=== PATIENT | female | born 1965 | race Caucasian/White ===

== ENCOUNTER → 2016-11-03 | Outpatient (CLI) | payer OTHER ==
[~2016-11-03] MED LIST: ALPR.25 PO; ASCO1CHW3 PO; CALTTAB PO; CHEL50TA PO; CYAN25003 SL; ESTR0.07 TD; FISHCAP PO; GLUCTAB6 PO; MIRA33502 PO; OMEP20TA39 PO; SM F10002 PO; TAB-TAB PO
== END ==
LOC: PLAB 09:56
DX: R35.0 Frequency of micturition (principal)
CPT/HCPCS: 87086

== ENCOUNTER → 2017-01-04 | Outpatient (CLI) | payer OTHER ==
[2017-01-04 13:25] LABS: HDL CHOLESTEROL 76.6 MG/DL (40.0-60.0)
== END ==
LOC: PLAB 08:06
PROVIDERS: ATTEND Family Medicine
DX: E78.5 Hyperlipidemia, unspecified (principal)
CPT/HCPCS: 36415; 80061

== ENCOUNTER → 2017-02-15 | Outpatient (CLI) | payer OTHER ==
[2017-02-15 13:21] LABS: MEAN CELL VOLUME 89.8 FL (80.0-100.0); MEAN CORPUSCULAR HEMOGLOBIN 30.5 PG (27.0-34.0); PLATELET COUNT 321 TH/MM3 (150-450); RED CELL DISTRIBUTION WIDTH 13.8 % (11.6-17.2); REVIEW FLAG FINAL; WHITE BLOOD COUNT 5.4 TH/MM3 (4.0-11.0)
[2017-02-15 13:35] LABS: RHEUMATOID FACTOR TRIGGER LESS THAN 10.0 IU/ML (0.0-14.9)
[2017-02-15 13:42] LABS: WESTERGREN SEDIMENTATION RATE 14 mm/hr (0-30)
[2017-02-15 14:05] LABS: ALKALINE PHOSPHATASE 114 U/L (45-117); ALT (GPT) 26 U/L (10-53); ANION GAP 8 MEQ/L (5-15); AST (GOT) 14 U/L (15-37); BICARBONATE 28.2 MEQ/L (21.0-32.0); BLOOD UREA NITROGEN 12 MG/DL (7-18); CHLORIDE 103 MEQ/L (98-107); FREE T4 0.96 NG/DL (0.76-1.46); GLOMERULAR FILTRATION RATE 81 ML/MIN (>89); SODIUM (NA) 139 MEQ/L (136-145); TOTAL BILIRUBIN ADULT 0.4 MG/DL (0.2-1.0)
[2017-02-15 14:07] LABS: CREATINE KINASE 78 U/L (26-192)
[2017-02-18 07:53] LABS: THROMBIN TIME FOR LA ND sec (13-19)
== END ==
LOC: PLAB 08:15
PROVIDERS: ATTEND Family Medicine
DX: M25.50 Pain in unspecified joint (principal); R53.83 Other fatigue; E55.9 Vitamin D deficiency, unspecified; M60.9 Myositis, unspecified
CPT/HCPCS: 80053; 82306; 82550; 82607; 84439; 84443; 85027; 85613; 85652; 85730; 86038; 86140; 86200; 86430

== ENCOUNTER → 2017-04-22 | Outpatient (CLI) | payer OTHER | LOC: PLAB 10:09 | PROVIDERS: ATTEND Family Medicine | DX: E78.5 Hyperlipidemia, unspecified (principal) | CPT/HCPCS: 80061 ==

== ENCOUNTER → 2017-04-26 | Outpatient (CLI) | payer OTHER ==
[2017-04-28 13:22] LABS: ESTRADIOL 22 pg/mL (()); ESTRIOL <0.07 ng/mL (<0.08)
[2017-04-29 19:52] LABS: PROGESTERONE 0.4 ng/mL (())
== END ==
LOC: PLAB 09:08
DX: N95.8 Other specified menopausal and perimenopausal disorders (principal); Z79.890 Hormone replacement therapy
CPT/HCPCS: 82670; 82677; 84144; 84403

== ENCOUNTER → 2017-05-30 | Outpatient (CLI) | payer OTHER ==
[2017-05-30 09:43] LABS: HEMATOCRIT 38.6 % (35.0-46.0); MEAN CELL VOLUME 91.3 FL (80.0-100.0); MEAN CORPUSCULAR HEMOGLOBIN 30.4 PG (27.0-34.0); MEAN CORPUSCULAR HGB CONC 33.3 % (32.0-36.0); PLATELET COUNT 304 TH/MM3 (150-450); RED BLOOD COUNT 4.23 MIL/MM3 (4.00-5.30); RED CELL DISTRIBUTION WIDTH 14.7 % (11.6-17.2); REVIEW FLAG FINAL; WHITE BLOOD COUNT 5.3 TH/MM3 (4.0-11.0)
[2017-05-30 09:51] LABS: BLOOD, URINE NEG (NEG); GLUCOSE,URINE NEG (NEG); KETONE, URINE NEG (NEG); NITRITE,URINE NEG (NEG); SQUAMOUS EPITHELIAL CELL URINE 4 /hpf (0-5); URINE COLOR LIGHT-YELLOW (YELLW/STRAW)
[2017-05-30 10:09] LABS: ALT (GPT) 24 U/L (10-53); ANION GAP 7 MEQ/L (5-15); AST (GOT) 17 U/L (15-37); BICARBONATE 27.7 MEQ/L (21.0-32.0); BLOOD UREA NITROGEN 7 MG/DL (7-18); CHLORIDE 104 MEQ/L (98-107); GLOMERULAR FILTRATION RATE 88 ML/MIN (>89); GLUCOSE,FASTING 94 MG/DL (74-99); POTASSIUM 3.6 MEQ/L (3.5-5.1); SODIUM (NA) 139 MEQ/L (136-145)
[2017-05-30 10:34] LABS: ALKALINE PHOSPHATASE 127 U/L (45-117); FREE T4 0.98 NG/DL (0.76-1.46); HDL CHOLESTEROL 57.7 MG/DL (40.0-60.0); LDL CHOLESTEROL 108 MG/DL (0-99); TOTAL BILIRUBIN ADULT 0.4 MG/DL (0.2-1.0)
== END ==
LOC: PLAB 08:22
PROVIDERS: ATTEND Family Medicine
DX: R53.83 Other fatigue (principal); E78.5 Hyperlipidemia, unspecified
CPT/HCPCS: 80053; 80061; 81001; 82533; 82607; 84439; 84443; 85027

== ENCOUNTER → 2017-07-19 | Outpatient (CLI) | payer OTHER ==
[2017-07-19 07:19] LABS: HEMATOCRIT 36.3 % (35.0-46.0); MEAN CELL VOLUME 91.3 FL (80.0-100.0); MEAN CORPUSCULAR HEMOGLOBIN 31.4 PG (27.0-34.0); MEAN CORPUSCULAR HGB CONC 34.4 % (32.0-36.0); PLATELET COUNT 318 TH/MM3 (150-450); RED BLOOD COUNT 3.98 MIL/MM3 (4.00-5.30); RED CELL DISTRIBUTION WIDTH 14.5 % (11.6-17.2); REVIEW FLAG FINAL; WHITE BLOOD COUNT 5.4 TH/MM3 (4.0-11.0)
[2017-07-19 07:49] LABS: ALT (GPT) 24 U/L (10-53); ANION GAP 5 MEQ/L (5-15); AST (GOT) 13 U/L (15-37); BICARBONATE 26.9 MEQ/L (21.0-32.0); BLOOD UREA NITROGEN 10 MG/DL (7-18); CHLORIDE 106 MEQ/L (98-107); GLOMERULAR FILTRATION RATE 85 ML/MIN (>89); GLUCOSE,FASTING 92 MG/DL (74-99); POTASSIUM 3.9 MEQ/L (3.5-5.1); RHEUMATOID FACTOR TRIGGER LESS THAN 10.0 IU/ML (0.0-14.9); SODIUM (NA) 138 MEQ/L (136-145)
[2017-07-19 07:50] LABS: BACTERIA, URINE RARE /hpf; BLOOD, URINE NEG (NEG); GLUCOSE,URINE NEG (NEG); KETONE, URINE NEG (NEG); NITRITE,URINE NEG (NEG); SQUAMOUS EPITHELIAL CELL URINE 2 /hpf (0-5); URINE COLOR YELLOW (YELLW/STRAW)
[2017-07-19 08:00] LABS: CORTISOL 20.9 MCG/DL
[2017-07-19 08:14] LABS: ALKALINE PHOSPHATASE 108 U/L (45-117); FREE T4 1.09 NG/DL (0.76-1.46); HDL CHOLESTEROL 61.1 MG/DL (40.0-60.0); LDL CHOLESTEROL 105 MG/DL (0-99); TOTAL BILIRUBIN ADULT 0.5 MG/DL (0.2-1.0)
[2017-07-19 08:21] LABS: CREATINE KINASE 59 U/L (26-192)
[2017-07-21 23:53] LABS: THROMBIN TIME FOR LA ND sec (13-19)
== END ==
LOC: CLAB 06:45
PROVIDERS: ATTEND Family Medicine
DX: E78.5 Hyperlipidemia, unspecified (principal); R53.83 Other fatigue; E55.9 Vitamin D deficiency, unspecified; M25.50 Pain in unspecified joint; M60.9 Myositis, unspecified
CPT/HCPCS: 36415; 80053; 80061; 81001; 82306; 82533; 82550; 82607; 84439; 84443; 85027; 85598; 85613; 85730; 86038; 86140; 86200; 86430

== ENCOUNTER → 2017-08-24 | Outpatient (CLI) | payer OTHER ==
[2017-08-24 14:10] LABS: THYROXINE (T4) 9.3 MCG/DL (4.8-13.9)
[2017-08-24 14:36] LABS: FREE T3 2.77 PG/ML (2.18-3.98)
== END ==
LOC: PLAB 09:51
PROVIDERS: ATTEND Family Medicine
DX: R79.89 Other specified abnormal findings of blood chemistry (principal); R53.83 Other fatigue
CPT/HCPCS: 82607; 84436; 84443; 84481

== ENCOUNTER → 2017-09-20 | Outpatient (CLI) | payer OTHER ==
[2017-09-20 10:53] LABS: FREE T4 1.02 NG/DL (0.76-1.46)
[2017-09-24 03:50] LABS: THYROGLOB ABS LESS THAN 1 IU/mL (< OR = 1)
[2017-09-24 13:52] LABS: THYROGLOBULN 6.5 ng/mL (2.8-40.9)
== END ==
LOC: PLAB 08:33
PROVIDERS: ATTEND Family Medicine
DX: R79.89 Other specified abnormal findings of blood chemistry (principal)
CPT/HCPCS: 36415; 84432; 84439; 84443; 86376; 86800

== ENCOUNTER → 2017-11-07 | Outpatient (CLI) | payer OTHER ==
[2017-11-07 11:45] LABS: ALBUMIN 3.9 GM/DL (3.4-5.0); AST (GOT) 15 U/L (15-37); BICARBONATE 28.2 MEQ/L (21.0-32.0); BLOOD UREA NITROGEN 9 MG/DL (7-18); CALCIUM 9.3 MG/DL (8.5-10.1); CHLORIDE 102 MEQ/L (98-107); CREATININE 0.75 MG/DL (0.50-1.00); GLOMERULAR FILTRATION RATE 81 ML/MIN (>89); GLUCOSE,FASTING 100 MG/DL (74-99); SODIUM (NA) 136 MEQ/L (136-145)
[2017-11-07 11:46] LABS: CHOLESTEROL 227 MG/DL (120-200); TRIGLYCERIDES 91 MG/DL (42-150)
[2017-11-07 11:50] LABS: ALKALINE PHOSPHATASE 114 U/L (45-117); ALT (GPT) 23 U/L (10-53); CHOLESTEROL/ HDL RATIO 3.22 RATIO; HDL CHOLESTEROL 70.4 MG/DL (40.0-60.0); LDL CHOLESTEROL 138 MG/DL (0-99); TOTAL BILIRUBIN ADULT 0.3 MG/DL (0.2-1.0); TOTAL PROTEIN 7.4 GM/DL (6.4-8.2)
== END ==
LOC: PLAB 08:49
PROVIDERS: ATTEND Family Medicine
DX: E78.5 Hyperlipidemia, unspecified (principal)
CPT/HCPCS: 36415; 80053; 80061

== ENCOUNTER → 2017-11-24 | Outpatient (CLI) | payer OTHER | LOC: PLAB 10:08 | PROVIDERS: ATTEND Family Medicine | DX: R53.83 Other fatigue (principal) | CPT/HCPCS: 36415; 82607 ==

== ENCOUNTER 2017-12-29 10:11 | Observation (INO) | payer OTHER ==
[2017-12-29] VITALS (9 sets, daily range): BP systolic 134–193; BP diastolic 79–102; PULSE 58–85; RESP 18–20; TEMP 96.6–97.8; O2SAT 97–100
[~2017-12-29] VITALS: Ht 160 cm; Wt 80.9 kg
[2017-12-29] MEDS ORDERED: SODIUM CHLORIDE 0.9% FLUSH 10 ML FLUSH IVF PRN (10:30)
[2017-12-29] MEDS ORDERED: ASPIRIN 325 MG TAB PO ONE (10:30)
[2017-12-29] MEDS ORDERED: RANI150T PO (10:34)
[2017-12-29] MEDS ORDERED: ASPI81CH6 CHEW (10:34)
[2017-12-29 10:47] LABS: AUTOMATED NEUTROPHIL # 2.5 TH/MM3 (1.8-7.7); BASOPHIL % 0.6 % (0.0-2.0); EOSINOPHIL # 0.1 TH/MM3 (0-0.4); EOSINOPHIL % 1.6 % (0.0-4.0); HEMATOCRIT 35.8 % (35.0-46.0); HEMOGLOBIN 12.1 GM/DL (11.6-15.3); LYMPH % 30.5 % (9.0-44.0); LYMPHOCYTE # 1.4 TH/MM3 (1.0-4.8); MEAN CELL VOLUME 91.4 FL (80.0-100.0); MEAN PLATELET VOLUME 7.2 FL (7.0-11.0); MONO % 10.7 % (0.0-8.0); MONOCYTE # 0.5 TH/MM3 (0-0.9); NEUT % 56.6 % (16.0-70.0); PLATELET COUNT 323 TH/MM3 (150-450); RED BLOOD COUNT 3.92 MIL/MM3 (4.00-5.30); RED CELL DISTRIBUTION WIDTH 13.6 % (11.6-17.2); WHITE BLOOD COUNT 4.5 TH/MM3 (4.0-11.0)
--- NOTE | 2017-12-29 10:47 | PD ---
HPI Chief Complaint: Chest Pain Time Seen by Provider: 10:17 Travel History International Travel<30 days: No Contact w/Intl Traveler<30days: No Traveled to known affect area: No History of Present Illness HPI This is a 52-year-old female who presents with multiple complaints. She states that over the last 3 weeks, she has had intermittent episodes of chest pain. It is sharp at times. It has now progressed to be occurring more frequently. It is achy now and radiates to the left arm. No associated diaphoresis or shortness of breath. She also notes that about 2 weeks ago, she had the left side of her forehead on her car door. No fall or loss of consciousness. She had a small skin wound which has healed normally. She states that she continues to have intermittent left-sided headaches. At times, she feels like her left eye or cheek is twitching. No generalized seizure activity. No focal weakness, numbness, tingling. No change in vision. No neck pain or stiffness. Symptoms are mild in severity. Onset gradual. Patient has not had any aspirin today. Patient states that she has had some cramping in both legs. She recently traveled to [place]. PFSH Past Medical History Hx Anticoagulant Therapy: Yes (asa 81) Blood Disorders: No Anxiety: Yes Cancer: Yes (CERVICAL CANCER) Cardiovascular Problems: No Chemotherapy: No Diabetes: No Diminished Hearing: No Endocrine: No Gastrointestinal Disorders: Yes (STONE IN GALLBLLADDER, GERD, gastritis) Glaucoma: No Genitourinary: No Hepatitis: No Hiatal Hernia: No Hypertension: No Immune Disorder: No Musculoskeletal: No Neurologic: No Psychiatric: Yes (DEPRESSION/ANXIETY) Reproductive: No Respiratory: No Immunizations Current: No Radiation Therapy: No Thyroid Disease: No Triglycerides - High: Yes Influenza Vaccination: Yes ?: Not Menopausal: Yes : 1 Para: 1 Tubal Ligation: Yes Past Surgical History Abdominal Surgery: No Body Medical Devices: dental implants Cardiac Surgery: No Ear Surgery: No Endocrine Surgery: No Eye Surgery: No Genitourinary Surgery: No Gynecologic Surgery: Yes (C SECTION, CERVIX REMOVED, PARTIAL HYSTERECTOMY, OOPHERECTOMY BRENDA) Hysterectomy: Yes Oral Surgery: No Pacemaker: No Thoracic Surgery: No Other Surgery: Yes (PLASTIC SURGERY INCLUDING LIPOSUCTION ON 09/22/11) Social History Alcohol Use: Yes (SOCIAL) Tobacco Use: No Substance Use: No Allergies-Medications (Allergen,Severity, Reaction): Coded Allergies: amoxicillin (Unverified Allergy, Severe, Nausea/Vomiting, 12/29/17) clavulanic acid (Unverified Allergy, Severe, Nausea/Vomiting, 12/29/17) crayfish (Unverified Allergy, Severe, THROAT CLOSES, SOB, 12/29/17) prednisone (Unverified Allergy, Severe, Tachycardia, 12/29/17) ketorolac (Unverified Adverse Reaction, Severe, Nausea/Vomiting, 12/29/17) Reported Meds & Prescriptions Reported Meds & Active Scripts Active Reported Ranitidine (Ranitidine HCl) 150 Mg Tab 150 Mg PO DAILY Aspirin Low Dose (Aspirin) 81 Mg Chew 81 Mg CHEW HS Review of Systems Except as stated in HPI: all other systems reviewed are Neg Physical Exam Narrative GENERAL: Alert, well nourished, well appearing patient resting on the bed in no acute distress. Vital Signs reviewed SKIN: Focused skin assessment warm/dry. HEAD: Atraumatic. Normocephalic. EYES: Pupils equal and round. No scleral icterus. No injection or drainage. ENT: No nasal bleeding or discharge. Mucous membranes pink and moist. NECK: Trachea midline. No JVD. Spontaneous, painless full range of motion with no meningismus CARDIOVASCULAR: Regular rate and rhythm. No murmur appreciated. Extremities warm and well perfused with bounding peripheral pulses RESPIRATORY: No accessory muscle use. Clear to auscultation. Breath sounds equal bilaterally. Breathing easily and speaking in full sentences GASTROINTESTINAL: Abdomen soft, non-tender, nondistended. Normal bowel sounds. No rigid, rebound, guarding MUSCULOSKELETAL: No obvious deformities. No clubbing. No cyanosis. No edema. Compartments are soft. No palpable calf cords. Negative Homans sign bilaterally. Legs are warm and well perfused with bounding symmetric DP pulses NEUROLOGICAL: Awake and alert. No obvious cranial nerve deficits. Motor grossly within normal limits. Normal speech. Sensation intact. Normal gait PSYCHIATRIC: Appropriate mood and affect; insight and judgment normal. Data Data Last Documented VS Vital Signs Date Time Temp Pulse Resp B/P (MAP) Pulse Ox O2 Delivery O2 Flow Rate FiO2 12/29/17 12:14 76 18 137/84 (101) 98 Room Air 12/29/17 10:26 97.8 Orders Orders Electrocardiogram (12/29/17 10:25) Ckmb (Isoenzyme) Profile (12/29/17 10:25) Complete Blood Count With Diff (12/29/17 10:25) Comprehensive Metabolic Panel (12/29/17 10:25) Magnesium (Mg) (12/29/17 10:25) Prothrombin Time / Inr (Pt) (12/29/17 10:25) Act Partial Throm Time (Ptt) (12/29/17 10:25) Troponin I (12/29/17 10:25) Ecg Monitoring (12/29/17 10:25) Bilateral Bp Monitoring (12/29/17 10:25) Iv Access Insert/Monitor (12/29/17 10:25) Oximetry (12/29/17 10:25) Aspirin (Aspirin) (12/29/17 10:30) Sodium Chloride 0.9% Flush (Ns Flush) (12/29/17 10:30) Chest, Pa & Lat (12/29/17 10:25) Ct Brain W/O Iv Contrast(Rout) (12/29/17 10:25) Us Leg Venous Doppler Bilat (12/29/17 10:26) Nitroglycerin Sl (Nitrostat Sl) (12/29/17 12:15) Admit Order (Ed Use Only) (12/29/17 12:32) Labs Laboratory Tests Test 12/29/17 10:41 White Blood Count 4.5 TH/MM3 Red Blood Count 3.92 MIL/MM3 Hemoglobin 12.1 GM/DL Hematocrit 35.8 % Mean Corpuscular Volume 91.4 FL Mean Corpuscular Hemoglobin 31.0 PG Mean Corpuscular Hemoglobin Concent 34.0 % Red Cell Distribution Width 13.6 % Platelet Count 323 TH/MM3 Mean Platelet Volume 7.2 FL Neutrophils (%) (Auto) 56.6 % Lymphocytes (%) (Auto) 30.5 % Monocytes (%) (Auto) 10.7 % Eosinophils (%) (Auto) 1.6 % Basophils (%) (Auto) 0.6 % Neutrophils # (Auto) 2.5 TH/MM3 Lymphocytes # (Auto) 1.4 TH/MM3 Monocytes # (Auto) 0.5 TH/MM3 Eosinophils # (Auto) 0.1 TH/MM3 Basophils # (Auto) 0.0 TH/MM3 CBC Comment DIFF FINAL Differential Comment Prothrombin Time 9.2 SEC Prothromb Time International Ratio 0.9 RATIO Activated Partial Thromboplast Time 27.8 SEC Blood Urea Nitrogen 7 MG/DL Creatinine 0.67 MG/DL Random Glucose 102 MG/DL Total Protein 7.3 GM/DL Albumin 3.6 GM/DL Calcium Level 8.7 MG/DL Magnesium Level 2.2 MG/DL Alkaline Phosphatase 112 U/L Aspartate Amino Transf (AST/SGOT) 16 U/L Alanine Aminotransferase (ALT/SGPT) 23 U/L Total Bilirubin 0.4 MG/DL Sodium Level 139 MEQ/L Potassium Level 3.9 MEQ/L Chloride Level 105 MEQ/L Carbon Dioxide Level 27.6 MEQ/L Anion Gap 6 MEQ/L Estimat Glomerular Filtration Rate 92 ML/MIN Total Creatine Kinase 57 U/L Troponin I LESS THAN 0.02 NG/ML MDM Medical Decision Making Medical Screen Exam Complete: Yes Emergency Medical Condition: Yes Medical Record Reviewed: Yes Interpretation(s) EKG shows sinus rhythm with a rate of 68. No acute ST elevation Laboratory Tests Test 12/29/17 10:41 White Blood Count 4.5 TH/MM3 Red Blood Count 3.92 MIL/MM3 Hemoglobin 12.1 GM/DL Hematocrit 35.8 % Mean Corpuscular Volume 91.4 FL Mean Corpuscular Hemoglobin 31.0 PG Mean Corpuscular Hemoglobin Concent 34.0 % Red Cell Distribution Width 13.6 % Platelet Count 323 TH/MM3 Mean Platelet Volume 7.2 FL Neutrophils (%) (Auto) 56.6 % Lymphocytes (%) (Auto) 30.5 % Monocytes (%) (Auto) 10.7 % Eosinophils (%) (Auto) 1.6 % Basophils (%) (Auto) 0.6 % Neutrophils # (Auto) 2.5 TH/MM3 Lymphocytes # (Auto) 1.4 TH/MM3 Monocytes # (Auto) 0.5 TH/MM3 Eosinophils # (Auto) 0.1 TH/MM3 Basophils # (Auto) 0.0 TH/MM3 CBC Comment DIFF FINAL Differential Comment Prothrombin Time 9.2 SEC Prothromb Time International Ratio 0.9 RATIO Activated Partial Thromboplast Time 27.8 SEC Blood Urea Nitrogen 7 MG/DL Creatinine 0.67 MG/DL Random Glucose 102 MG/DL Total Protein 7.3 GM/DL Albumin 3.6 GM/DL Calcium Level 8.7 MG/DL Magnesium Level 2.2 MG/DL Alkaline Phosphatase 112 U/L Aspartate Amino Transf (AST/SGOT) 16 U/L Alanine Aminotransferase (ALT/SGPT) 23 U/L Total Bilirubin 0.4 MG/DL Sodium Level 139 MEQ/L Potassium Level 3.9 MEQ/L Chloride Level 105 MEQ/L Carbon Dioxide Level 27.6 MEQ/L Anion Gap 6 MEQ/L Estimat Glomerular Filtration Rate 92 ML/MIN Total Creatine Kinase 57 U/L Troponin I LESS THAN 0.02 NG/ML Last 24 hours Impressions Lower Extremity Ultrasound 12/29/17 1026 Signed Impressions: Service Date/Time: December 10:55 - CONCLUSION: Normal examination. Abner Calvillo MD Head CT 12/29/17 1025 Signed Impressions: Service Date/Time: December 11:19 - CONCLUSION: No acute intracranial disease. Dung Cardona MD Chest X-Ray 12/29/17 1025 Signed Impressions: Service Date/Time: December 10:40 - CONCLUSION: Normal examination. Cholecystectomy clips Kirt Winston MD Differential Diagnosis Unstable angina, atypical angina, musculoskeletal pain, anxiety, DVT, closed head injury, concussion, subdural hematoma Narrative Course The patient was placed on the metal reed tuner. IV access was established. Labs , imaging were performed. Patient was given aspirin and a dose of nitroglycerin with resolution of her chest pain. She has no focal neurological deficits in the emergency department. I am concerned regarding her left-sided chest pain that radiates to the left arm. She has not had a stress test in 3-5 years. I reviewed the results of the workup with her. Plan for admission for further evaluation and care of acute chest pain. Physician Communication Physician Communication 12:30 PM: Spoke with the admitting hospitalist Diagnosis Primary Impression: Acute chest pain Mayi Issa MD Dec 29, 2017 10:47
[2017-12-29 10:54] LABS: CHLORIDE 105 MEQ/L (98-107); SODIUM (NA) 139 MEQ/L (136-145)
[2017-12-29 10:57] LABS: CALCIUM 8.7 MG/DL (8.5-10.1)
[2017-12-29 10:58] LABS: ALBUMIN 3.6 GM/DL (3.4-5.0); BICARBONATE 27.6 MEQ/L (21.0-32.0); BLOOD UREA NITROGEN 7 MG/DL (7-18); GLUCOSE,RANDOM 102 MG/DL (74-106); MAGNESIUM 2.2 MG/DL (1.5-2.5)
--- NOTE | 2017-12-29 10:58 | RADRPT ---
EXAM DATE/TIME: 12/29/2017 10:40 [facility] COMPARISON: No previous studies available for comparison. INDICATIONS : Chest pain radiating to left arm. MEDICAL HISTORY : Gastroesophageal reflux disease. Gall stones. Gastritis. Cervical CA. SURGICAL HISTORY : Cholecystectomy. section. Hysterectomy. OOphorectomy. Tubal ligation. ENCOUNTER: Initial ACUITY: 1 day PAIN SCORE: 5/10 LOCATION: chest FINDINGS: PA and lateral views of the chest demonstrate the lungs to be symmetrically aerated without evidence of mass, infiltrate or effusion. The cardiomediastinal contours are unremarkable. Osseous structure s are intact. CONCLUSION: Normal examination. Cholecystectomy clips Kirt Winstno MD on December 29, 2017 at 10:56 Board Certified Radiologist. This report was verified electronically.
[2017-12-29 11:01] LABS: ALT (GPT) 23 U/L (10-53); AST (GOT) 16 U/L (15-37); CREATININE 0.67 MG/DL (0.50-1.00); GLOMERULAR FILTRATION RATE 92 ML/MIN (>89)
[2017-12-29 11:03] LABS: TOTAL BILIRUBIN ADULT 0.4 MG/DL (0.2-1.0); TOTAL PROTEIN 7.3 GM/DL (6.4-8.2)
[2017-12-29 11:04] LABS: ALKALINE PHOSPHATASE 112 U/L (45-117)
[2017-12-29 11:06] LABS: TROPONIN I LESS THAN 0.02 NG/ML (0.02-0.05)
--- NOTE | 2017-12-29 11:26 | RADRPT ---
EXAM DATE/TIME: 12/29/2017 10:55 [facility] COMPARISON: No previous studies available for comparison. INDICATIONS : Bilateral leg pain. MEDICAL HISTORY : Gastroesophageal reflux disease. Cervical cancer. Gastritis. Hyperlipidemia. SURGICAL HISTORY : Cholecystectomy. section. Tubal ligation.Hysterectomy. ENCOUNTER: Initial ACUITY: 1 day PAIN SCORE: 3/10 LOCATION: Bilateral legs. TECHNIQUE: Venous ultrasound of the left and right leg was performed from the inguinal ligament to the proximal calf. Real-time, color Doppler and spectral tracing, compression and augmentation techniques were us ed. FINDINGS: RIGHT LEG: There is normal compressibility of the deep venous system from the inguinal region to the proximal ca lf. No echogenic clot is seen in the lumen of the common femoral, femoral, popliteal, and posterior tibial veins. There is a normal response of the venous system to proximal and distal augmentation an d respiration. LEFT LEG: There is normal compressibility of the deep venous system from the inguinal region to the proximal ca lf. No echogenic clot is seen in the lumen of the common femoral, femoral, popliteal, and posterior tibial veins. There is a normal response of the venous system to proximal and distal augmentation an d respiration. CONCLUSION: Normal examination. Abner Calvillo MD on December 29, 2017 at 11:24 Board Certified Radiologist. This report was verified electronically.
[2017-12-29 11:27] LABS: INTERNATIONAL NORMALIZED RATIO 0.9 RATIO; PROTHROMBIN TIME - PATIENT 9.2 SEC (9.8-11.6)
--- NOTE | 2017-12-29 11:28 | RADRPT ---
EXAM DATE/TIME: 12/29/2017 11:19 [facility] COMPARISON: No previous studies available for comparison. INDICATIONS : Trauma. Hit left forehead 2 weeks ago. RADIATION DOSE: 63.87 CTDIvol (mGy) MEDICAL HISTORY : Gastroesophageal reflux disease. Cervical cancer. SURGICAL HISTORY : Cholecystectomy. Tubal ligation.Hysterectomy. ENCOUNTER: Initial ACUITY: 2 weeks PAIN SCALE: 2/10 LOCATION: Left frontal TECHNIQUE: Multiple contiguous axial images were obtained of the head. Using automated exposure control and adj ustment of the mA and/or kV according to patient size, radiation dose was kept as low as reasonably a chievable to obtain optimal diagnostic quality images. DICOM format image data is available electro nically for review and comparison. FINDINGS: CEREBRUM: The ventricles are normal for age. No evidence of midline shift, mass lesion, hemorrhage or acute in farction. No extra-axial fluid collections are seen. POSTERIOR FOSSA: The cerebellum and brainstem are intact. The 4th ventricle is midline. The cerebellopontine angle i s unremarkable. EXTRACRANIAL: The visualized portion of the orbits is intact. SKULL: The calvaria is intact. No evidence of skull fracture. CONCLUSION: No acute intracranial disease. Dung Cardona MD on December 29, 2017 at 11:26 Board Certified Radiologist. This report was verified electronically.
[2017-12-29] MEDS ORDERED: NITROGLYCERIN 0.4 MG SL 25 TABS/BTL SL ONE (12:15)
[2017-12-29] MEDS ORDERED: SODIUM CHLORIDE 0.9% FLUSH 10 ML FLUSH IV FLUSH PRN (14:15)
[2017-12-29] MEDS ORDERED: TEMAZEPAM 15 MG CAP PO PRN (15:00)
[2017-12-29] MEDS ORDERED: ACETAMINOPHEN 500 MG CPLT PO PRN (15:00)
[2017-12-29] MEDS ORDERED: ACETAMINOPHEN/HYDROcodone 325 MG/7.5 MG TAB PO PRN (15:00)
[2017-12-29] MEDS ORDERED: MORPHINE SULFATE 4 MG/ML INJ IV PUSH PRN (15:00)
[2017-12-29] MEDS ORDERED: NITROGLYCERIN 0.4 MG SL 25 TABS/BTL SL PRN (15:00)
[2017-12-29] MEDS ORDERED: ONDANSETRON HCL 4 MG/2 ML VIAL IV PUSH PRN (15:00)
--- NOTE | 2017-12-29 15:14 | HHI.HP ---
HPI Service [facility] Primary Care Physician Abdi Wheat DO Admission Diagnosis Acute Chest Pain Diagnoses: (1) Chest pain Chief Complaint: Chest pain Travel History International Travel<30 Days: No Contact w/Intl Traveler <30 Da: No Traveled to Known Affected Are: No History of Present Illness There is a 52-year-old female with known history of hypertension, hyperlipidemia, cervical cancer who presented to the hospital because of chest discomfort. Patient states that she has been experiencing intermittent chest pain for over 3 weeks. She states that it is described as a heaviness in her chest that radiates to her left arm with associated nausea, lightheadedness. Denied any vomiting, diaphoresis, shortness of breath. She indicates that a 6/ 10 on a pain scale and was happening approximately daily that lasted for a few minutes at a time. However she has been under a lot more stress recently and today she was experiencing it like every 30 minutes resolved in a few minutes and described his same pain that she has been experiencing for the last 3 weeks. Patient came to emergency department for evaluation. Patient was found to have accelerated hypertension at that time. Her blood pressure controlled her pain did improve. He has recommended by the ER physician that the patient be observed for the chest pain center. Review of Systems Constitutional: COMPLAINS OF: Dizziness Cardiovascular: COMPLAINS OF: Chest pain Gastrointestinal: COMPLAINS OF: Nausea Except as stated in HPI: all other systems reviewed are Neg Past Family Social History Past Medical History Hypertension Hyperlipidemia History of cervical cancer Past Surgical History Hysterectomy Cholecystectomy Reported Medications Reported Meds & Active Scripts Active Reported Ranitidine (Ranitidine HCl) 150 Mg Tab 150 Mg PO DAILY Aspirin Low Dose (Aspirin) 81 Mg Chew 81 Mg CHEW HS Allergies: Coded Allergies: amoxicillin (Unverified Allergy, Severe, Nausea/Vomiting, 12/29/17) clavulanic acid (Unverified Allergy, Severe, Nausea/Vomiting, 12/29/17) crayfish (Unverified Allergy, Severe, THROAT CLOSES, SOB, 12/29/17) prednisone (Unverified Allergy, Severe, Tachycardia, 12/29/17) ketorolac (Unverified Adverse Reaction, Severe, Nausea/Vomiting, 12/29/17) Family History Reviewed and significant for father with high blood pressure and myocardial infarction. Mother with hypertension and cerebral hemorrhage Social History Patient quit smoking 20 years ago, prior to that she smoked 1 pack of cigarettes a day since she was 15 years old. She does drink alcohol 2 times weekly. Denies any illicit drug Physical Exam Vital Signs Vital Signs Date Time Temp Pulse Resp B/P (MAP) Pulse Ox O2 Delivery O2 Flow Rate FiO2 12/29/17 13:00 12/29/17 12:14 76 18 137/84 (101) 98 Room Air 12/29/17 12:09 75 18 139/83 (101) 98 Room Air 12/29/17 12:00 97.3 58 18 138/79 (98) 97 12/29/17 10:48 74 18 146/87 (106) 98 Room Air 12/29/17 10:29 85 12/29/17 10:26 97.8 85 18 193/102 (132) 100 Physical Exam GENERAL: Well-developed, well-nourished, in no acute distress. alert and orientated HEENT: Head is normocephalic without any lesions or masses noted. Facial features are symmetric. Eyes: Pupils equal round reactive to light. Extraocular muscles are intact. Conjunctivae were clear. Oropharyngeal: Pharynx without any erythema edema. Tongue is midline without deviation. Buccal mucosa is moist without any masses or lesions NECK: Supple without any masses. Trachea midline no deviation. No JVD, no bruits are appreciated CARDIAC: Regular rhythm, regular rate. S1/S2 are heard. No murmurs gallops or rubs. LUNGS: Clear to auscultation bilaterally. No wheeze, rhonchi or rales. No use of accessory muscles on inspiration or expiration. ABDOMEN: Soft, nontender. Nondistended. Bowel sounds heard in all 4 quadrants. No organomegaly or masses. Negative rebound, negative guarding EXTREMITIES: No edema, pulses are equal bilaterally. No cyanosis or clubbing NEUROLOGY: Mood and affect appear appropriate. Cranial nerves II through XII grossly intact. Muscle strength 5/5 in upper and lower extremities bilaterally. Deep tendon reflexes are 2+ in upper and lower extremities bilaterally. Laboratory Laboratory Tests Test 12/29/17 10:41 White Blood Count 4.5 Red Blood Count 3.92 Hemoglobin 12.1 Hematocrit 35.8 Mean Corpuscular Volume 91.4 Mean Corpuscular Hemoglobin 31.0 Mean Corpuscular Hemoglobin Concent 34.0 Red Cell Distribution Width 13.6 Platelet Count 323 Mean Platelet Volume 7.2 Neutrophils (%) (Auto) 56.6 Lymphocytes (%) (Auto) 30.5 Monocytes (%) (Auto) 10.7 Eosinophils (%) (Auto) 1.6 Basophils (%) (Auto) 0.6 Neutrophils # (Auto) 2.5 Lymphocytes # (Auto) 1.4 Monocytes # (Auto) 0.5 Eosinophils # (Auto) 0.1 Basophils # (Auto) 0.0 CBC Comment DIFF FINAL Differential Comment Prothrombin Time 9.2 Prothromb Time International Ratio 0.9 Activated Partial Thromboplast Time 27.8 Blood Urea Nitrogen 7 Creatinine 0.67 Random Glucose 102 Total Protein 7.3 Albumin 3.6 Calcium Level 8.7 Magnesium Level 2.2 Alkaline Phosphatase 112 Aspartate Amino Transf (AST/SGOT) 16 Alanine Aminotransferase (ALT/SGPT) 23 Total Bilirubin 0.4 Sodium Level 139 Potassium Level 3.9 Chloride Level 105 Carbon Dioxide Level 27.6 Anion Gap 6 Estimat Glomerular Filtration Rate 92 Total Creatine Kinase 57 Troponin I LESS THAN 0.02 Result Diagram: 12/29/17 1041 12/29/17 1041 Imaging Last Impressions Lower Extremity Ultrasound 12/29/17 1026 Signed Impressions: Service Date/Time: December 10:55 - CONCLUSION: Normal examination. Abner Calvillo MD Head CT 12/29/17 1025 Signed Impressions: Service Date/Time: December 11:19 - CONCLUSION: No acute intracranial disease. Dung Cardona MD Chest X-Ray 12/29/17 1025 Signed Impressions: Service Date/Time: December 10:40 - CONCLUSION: Normal examination. Cholecystectomy clips MD Danita Cobos VTE Risk Assessment Danita VTE Risk Assessment: No/Low Risk (score <= 1) Caprini Risk Assessment Model Point Value = 1 Point Value = 2 Point Value = 3 Point Value = 5 Age 41-60 Minor surgery BMI > 25 kg/m2 Swollen legs Varicose veins or History of unexplained or recurrent spontaneous Oral contraceptives or hormone replacement Sepsis (< 1 month) Serious lung disease, including pneumonia (< 1 month) Abnormal pulmonary function Acute myocardial infarction Congestive heart failure (< 1 month) History of inflammatory bowel disease Medical patient at bed rest Age 61-74 Arthroscopic surgery Major open surgery (> 45 min) Laparoscopic surgery (> 45 min) Malignancy Confined to bed (> 72 hours) Immobilizing plaster cast Central venous access Age >= 75 History of VTE Family history of VTE Factor V Leiden Prothrombin [id number] Lupus anticoagulant Anticardiolipin antibodies Elevated serum homocysteine Heparin-induced thrombocytopenia Other congenital or acquired thrombophilia Stroke (< 1 month) Elective arthroplasty Hip, pelvis, or leg fracture Acute spinal cord injury (< 1 month) Prophylaxis Regimen Total Risk Factor Score Risk Level Prophylaxis Regimen 0-1 Low Early ambulation 2 Moderate Order ONE of the following: *Sequential Compression Device (SCD) *Heparin 5000 units SQ BID 3-4 Higher Order ONE of the following medications: *Heparin 5000 units SQ TID *Enoxaparin/Lovenox 40 mg SQ daily (WT < 150 kg, CrCl > 30 mL/min) *Enoxaparin/Lovenox 30 mg SQ daily (WT < 150 kg, CrCl > 10-29 mL/min) *Enoxaparin/Lovenox 30 mg SQ BID (WT < 150 kg, CrCl > 30 mL/min) AND/OR *Sequential Compression Device (SCD) 5 or more Highest Order ONE of the following medications: *Heparin 5000 units SQ TID (Preferred with Epidurals) *Enoxaparin/Lovenox 40 mg SQ daily (WT < 150 kg, CrCl > 30 mL/min) *Enoxaparin/Lovenox 30 mg SQ daily (WT < 150 kg, CrCl > 10-29 mL/min) *Enoxaparin/Lovenox 30 mg SQ BID (WT < 150 kg, CrCl > 30 mL/min) AND *Sequential Compression Device (SCD) Assessment and Plan Assessment and Plan Chest pain, atypical Patient with increased risk factors to include age, hypertension, hyperlipidemia, family history of heart disease, history of tobacco use This far the patient had been ruled out for acute coronary event with serial cardiac enzymes are negative, serial EKGs show sinus rhythm without any changes Patient underwent exercise stress test suggestive of ischemia. Will plan further testing with myocardial perfusion study in the a.m. Continue aspirin, nitroglycerin as needed, morphine for pain Elevated blood pressure on presentation in a patient with known history of hypertension Improved after the use of nitroglycerin Recommend lifestyle modifications, followed both by medical doctor for medication management DVT prevention Low risk, early ambulation Jemal Lara Dec 29, 2017 15:14
[2017-12-29 15:51] LABS: TROPONIN I LESS THAN 0.02 NG/ML (0.02-0.05)
--- NOTE | 2017-12-29 18:04 | EKG ---
Date Performed: 12/29/2017 Time Performed: 15:21:01 PTAGE: 52 years EKG: Sinus rhythm NORMAL ECG Since PREVIOUS TRACING , no significant change noted PREVIOUS TRACIN12/29/2017 10.31 DOCTOR: Kenyatta Hills Interpretating Date/Time 12/29/2017 18:03:23
--- NOTE | 2017-12-29 18:08 | TR ---
Date Performed: 12/29/2017 Time Performed: 17:00:16 DOCTOR: Kenyatta Hills DRUG LIST: CLINICAL HISTORY: ACUTE CHEST PAIN REASON FOR TEST: REASON FOR ENDING: Completed Protocol OBSERVATION: Arrhythmia: None Chest Pain: None CONCLUSION: Patient tolerated ADAMA protocol with Total Exercise Time=6:00 Maximum RQ=200 % Max HR Achieved=97.0% Maximum SL=152/76, Testing stopped secondary to goals acheived. Patient reached tar get HR. During peak exercise patient was asymtpomatic. slow upsloping/ questionable flat ST segments. HR and BP appropriate to response. Recovery period, HR and BP returned to baseline. COMMENTS: Suggestive, but not diagnostic of ischemia.
[2017-12-29] MEDS ORDERED: ONDANSETRON ODT 4 MG TAB PO PRN (18:30)
[2017-12-29] MEDS ORDERED: CLON0.5T PO (18:33)
[2017-12-29 19:23] LABS: TROPONIN I LESS THAN 0.02 NG/ML (0.02-0.05)
[2017-12-29] MEDS: SODIUM CHLORIDE 0.9% FLUSH 10 ML FLUSH IV FLUSH SCH (21:00)
[2017-12-29] MEDS: FAMOTIDINE 20 MG TAB PO SCH (22:45)
[2017-12-29] MEDS: clonazePAM 0.5 MG TAB PO SCH (22:45)
[2017-12-30] VITALS: BP 133/92; PULSE 69; RESP 20; TEMP 96.9; O2SAT 98
[2017-12-30 04:00] VITALS: BP 107/70; PULSE 60; RESP 20; TEMP 96.9; O2SAT 97
--- NOTE | 2017-12-30 07:49 | HHI.PR ---
Subjective Remarks Patient seen and examined today for follow-up on chest pain. Patient denies any recurrent chest pain at this time. Awaiting nuclear stress test for further evaluation. Discussed with the patient extensively on plan of care. What plan would be if the test is negative as well as what the plan will be if it is positive. Patient is in agreement with workup and plan. Objective Vitals Vital Signs Date Time Temp Pulse Resp B/P (MAP) Pulse Ox O2 Delivery O2 Flow Rate FiO2 12/30/17 04:00 96.9 60 20 107/70 (82) 97 12/30/17 00:00 96.9 69 20 133/92 (106) 98 12/29/17 22:05 77 12/29/17 21:00 98 21 12/29/17 20:00 96.6 76 20 134/87 (103) 99 12/29/17 14:13 99 21 12/29/17 13:00 12/29/17 12:14 76 18 137/84 (101) 98 Room Air 12/29/17 12:09 75 18 139/83 (101) 98 Room Air 12/29/17 12:00 97.3 58 18 138/79 (98) 97 12/29/17 10:48 74 18 146/87 (106) 98 Room Air 12/29/17 10:29 85 12/29/17 10:26 97.8 85 18 193/102 (132) 100 I/O 12/29/17 12/29/17 12/29/17 12/30/17 12/30/17 12/30/17 07:00 15:00 23:00 07:00 15:00 23:00 Intake Total 0 ml 1320 ml Balance 0 ml 1320 ml Intake Oral 0 ml 1320 ml # Voids 3 4 # Bowel Movements 0 0 Result Diagram: 12/29/17 1041 12/29/17 1041 Objective Remarks GENERAL: Well-developed, well-nourished, in no acute distress. alert and orientated HEENT: Head is normocephalic without any lesions or masses noted. Facial features are symmetric. Eyes: Extraocular muscles are intact. Conjunctivae were clear. NECK: Supple without any masses. Trachea midline no deviation. No JVD, CARDIAC: Regular rhythm, regular rate. S1/S2 are heard. No murmurs gallops or rubs. LUNGS: Clear to auscultation bilaterally. No wheeze, rhonchi or rales. No use of accessory muscles on inspiration or expiration. ABDOMEN: Soft, nontender. Nondistended. Bowel sounds heard in all 4 quadrants. No organomegaly or masses. Negative rebound, negative guarding EXTREMITIES: No edema, pulses are equal bilaterally. No cyanosis or clubbing NEUROLOGY: Mood and affect appear appropriate. Cranial nerves II through XII grossly intact. Moving all extremities, speech is clear Urinary Catheter: No Vascular Central Line Catheter: No A/P Assessment and Plan Chest pain, atypical Patient with increased risk factors to include age, hypertension, hyperlipidemia, family history of heart disease, history of tobacco use This far the patient had been ruled out for acute coronary event with serial cardiac enzymes are negative, serial EKGs show sinus rhythm without any changes Exercise stress test was performed which was suggestive of ischemia Myocardial perfusion study did not indicate any signs of ischemia, low risk Continue aspirin, nitroglycerin as needed, morphine for pain Elevated blood pressure on presentation in a patient with known history of hypertension Improved after the use of nitroglycerin Recommend lifestyle modifications, followed both by medical doctor for medication management DVT prevention Low risk, early ambulation Discharge Planning Discharge home in stable condition Activity: Ad sheela. Diet: Healthy heart diet Medication per medication reconciliation Follow-up with primary medical doctor in 1 week Jemal Lara Dec 30, 2017 07:49
[2017-12-30 08:00] VITALS: BP 115/72; PULSE 63; RESP 20; TEMP 96.9; O2SAT 97; O2SAT 98
[2017-12-30] MEDS: clonazePAM 0.5 MG TAB PO SCH (08:32)
[2017-12-30] MEDS: FAMOTIDINE 20 MG TAB PO SCH (08:33)
[2017-12-30] MEDS: SODIUM CHLORIDE 0.9% FLUSH 10 ML FLUSH IV FLUSH SCH (08:33)
[2017-12-30] MEDS ORDERED: ASPIRIN 325 MG TAB PO SCH (09:00)
[2017-12-30] MEDS ORDERED: REGADENOSON INJ 0.4 MG/5 ML SYR IV ONE (09:19)
--- NOTE | 2017-12-30 10:39 | RADRPT ---
EXAM DATE/TIME: 12/30/2017 09:07 [facility] COMPARISON: No previous studies available for comparison. INDICATIONS : Angina. Abnormal exercise treadmill test. DOSE: 25.8 mCi Tc99m Myoview at stress. 8.1 mCi Tc99m Myoview at rest. 0.4 mg Lexiscan STRESS SYMPTOMS: None noted. EJECTION FRACTION: 66% MEDICAL HISTORY : Cervical cancer. SURGICAL HISTORY : Hysterectomy. Cholecystectomy. ENCOUNTER: Initial ACUITY: 1 day PAIN SCALE: 2/10 LOCATION: Bilateral chest TECHNIQUE: The patient underwent pharmacologic stress with infusion of prescribed dose. Continuous ECG tracing was monitored during stress. Gated SPECT imaging was performed after stress and conventional SPECT i maging was performed at rest. The examination was performed on a SPECT/CT scanner, both attenuation and non-corrected datasets were reviewed. FINDINGS: DISTRIBUTION: The maximum perfused segment at stress is in the anterior wall. PERFUSION STUDY: The pattern of perfusion at stress is within normal limits. GATED STUDY: There is intact wall motion and thickening without hypokinetic or dyskinetic segments. CONCLUSION: 1. No evidence for infarction or stress-induced ischemia. 2. Intact wall motion with EF of 66%. RISK CATEGORY: Low (<1% Annual Mortality Rate) Tito Anguiano MD on December 30, 2017 at 10:19 Board Certified Radiologist. This report was verified electronically.
--- NOTE | 2017-12-30 11:00 | HHI.DCPOC ---
Discharge Care Plan Diagnosis: (1) Chest pain Goals to Promote Your Health * To prevent worsening of your condition and complications * To maintain your health at the optimal level Directions to Meet Your Goals Take your medications as prescribed Follow your dietary instruction Follow activity as directed Keep your appointments as scheduled Take your immunizations and boosters as scheduled If your symptoms worsen call your PCP, if no PCP go to Urgent Care Center or Emergency Room Smoking is Dangerous to Your Health. Avoid second hand smoke Call the 24-hour hour crisis hotline for domestic abuse at Jemal Laar Dec 30, 2017 10:59
--- NOTE | 2017-12-30 15:19 | EKG ---
Date Performed: 12/29/2017 Time Performed: 10:31:39 PTAGE: 52 years EKG: Sinus rhythm WITH SINUS ARRHYTHMIA NORMAL ECG PREVIOUS TRACING : 10/30/2015 12.14 Since previous tracing, no significant change noted DOCTOR: Chris Hackett Interpretating Date/Time 12/30/2017 15:17:26
--- NOTE | 2017-12-30 15:19 | EKG ---
Date Performed: 12/29/2017 Time Performed: 18:51:20 PTAGE: 52 years EKG: Sinus rhythm NORMAL ECG PREVIOUS TRACING : 12/29/2017 15.21 Since previous tracing, no significant change noted DOCTOR: Chris Hackett Interpretating Date/Time 12/30/2017 15:17:38
--- NOTE | 2017-12-30 15:20 | TR ---
Date Performed: 12/30/2017 Time Performed: 09:34:43 DOCTOR: Chris Hackett DRUG LIST: CLINICAL HISTORY: ACUTE CHEST PAIN REASON FOR TEST: REASON FOR ENDING: OBSERVATION: CONCLUSION: Lexiscan stress test was performed under standard four minute protocol. Radionuclid e was injected one minute prior to ending the test. No electrocardiographic abormalities were present to suggest ischemia. Nuclear imaging and interpretation are pending. COMMENTS:
== END 2017-12-30 11:45 | disposition home or self-care (01) ==
LOC: PHED 10:11 → PHEDA 12:32 → PH3A 12:58
PROVIDERS: ADMIT Hospitalist; ATTEND Hospitalist
DX: R07.89 Other chest pain (principal); M79.602 Pain in left arm; R11.0 Nausea; R42 Dizziness and giddiness; R51 Headache; R25.2 Cramp and spasm; I10 Essential (primary) hypertension; E78.5 Hyperlipidemia, unspecified; I49.9 Cardiac arrhythmia, unspecified; F41.9 Anxiety disorder, unspecified; Z85.41 Personal history of malignant neoplasm of cervix uteri; Z87.891 Personal history of nicotine dependence; Z79.82 Long term (current) use of aspirin; Z82.49 Family history of ischemic heart disease and other diseases of the circulatory system
CPT/HCPCS: 70450; 71046; 78452; 80053; 82550; 83735; 84484; 85025; 85610; 85730; 93005; 93017; 93970; 99285; A9502; G0378; J2785

== ENCOUNTER → 2018-02-21 | Outpatient (CLI) | payer OTHER ==
[~2018-02-21] MED LIST changes: -ALPR.25 PO; -ASCO1CHW3 PO; +ASPI81CH6 CHEW; -CALTTAB PO; -CHEL50TA PO; +CLON0.5T PO; -CYAN25003 SL; -ESTR0.07 TD; -FISHCAP PO; -GLUCTAB6 PO; -MIRA33502 PO; -OMEP20TA39 PO; +RANI150T PO; -SM F10002 PO; -TAB-TAB PO
[2018-02-21 14:55] LABS: CHOLESTEROL/ HDL RATIO 2.9 RATIO; FREE T4 0.96 NG/DL (0.76-1.46); HDL CHOLESTEROL 67.4 MG/DL (40.0-60.0)
== END ==
LOC: PLAB 09:17
PROVIDERS: ATTEND Family Medicine
DX: R53.83 Other fatigue (principal); E78.5 Hyperlipidemia, unspecified
CPT/HCPCS: 36415; 80061; 82607; 84439; 84443